=== PATIENT | female | born 1945 | race Caucasian/White ===

== ENCOUNTER 2020-10-14 07:31 | Emergency (ER) | payer MEDICARE, MEDICAID ==
[~2020-10-14] VITALS: Ht 160 cm; Wt 72.7 kg
[2020-10-14 09:59] LABS: APPEARANCE,URINE CLOUDY (CLEAR); BILIRUBIN,URINE NEGATIVE (NEGATIVE); GLUCOSE, URINE (UA) NEGATIVE (NEGATIVE); KETONES,URINE NEGATIVE (NEGATIVE); LEUKOCYTE ESTERASE ,URINE NEGATIVE (NEGATIVE); NITRATE,URINE NEGATIVE (NEGATIVE); OCCULT BLOOD,URINE TRACE (NEGATIVE); PH,URINE 5.5 (5.0-8.0); PROTEIN,URINE NEGATIVE (NEGATIVE); UROBILINOGEN,URINE 0.2 mg/dL (<=1.0)
[2020-10-14 10:18] LABS: EOSINOPHILS % (AUTO) 1.1 % (1.0-6.0); HEMATOCRIT 36.9 % (36-46); HEMOGLOBIN 12.2 g/dL (12.0-16.0); LYMPHOCYTES # (AUTO) 1.5 K/uL (1.0-4.8); LYMPHOCYTES % (AUTO) 24.5 % (22.0-44.0); MEAN CORPUSCULAR HEMOGLOBIN 30.4 pg (26.0-34.0); MEAN CORPUSCULAR VOLUME 92 fL (80-100); MONOCYTES # (AUTO) 0.4 K/uL (0.1-1.0); MONOCYTES % (AUTO) 6.9 % (2.0-9.0); NEUTROPHILS # (AUTO) 4.1 K/uL (1.8-7.7); NEUTROPHILS % (AUTO) 66.5 % (40.0-70.0); PLATELET COUNT (AUTO) 239 K/uL (150-450); RED BLOOD CELL COUNT(AUTO) 4.01 MIL/uL (4.00-5.20)
[2020-10-14 10:25] LABS: COVID AG,FIA SOURCE NASOPHARYNGEAL
[2020-10-14 10:30] LABS: ANION GAP 6 mmol/L (8-16); CALCIUM, TOTAL 8.9 mg/dL (8.8-10.5); CARBON DIOXIDE 25 mmol/L (22-29); CHLORIDE 103 mmol/L (98-107); CREATININE 0.82 mg/dL (0.60-1.30); GLUCOSE,RANDOM 103 mg/dL (70-110); POTASSIUM 3.6 mmol/L (3.5-5.1); SODIUM SERUM 134 mmol/L (136-145); UREA NITROGEN, BLOOD 27 mg/dL (7-18)
[2020-10-14 10:34] LABS: GLOMERULAR FILTR. RATE CALC > 60 mL/min (>60)
[2020-10-14 10:36] LABS: ALANINE AMINOTRANSFERASE 29 U/L (12-78); ALBUMIN 3.4 g/dL (3.4-5.0); ALKALINE PHOSPHATASE 62 U/L (46-116); ASPARTATE AMINOTRANSFERASE 18 U/L (15-37); BILIRUBIN,TOTAL 0.2 mg/dL (0.1-1.0); TOTAL PROTEIN, SERUM 6.9 g/dL (6.4-8.2)
[2020-10-14 11:47] LABS: BACTERIA,URINE None Seen /HPF (None Seen); RBC,URINE 0-2 /HPF (0-2); SQUAMOUS EPITHELIAL CELL,UR Moderate /LPF (None Seen); WBC,URINE None Seen /HPF (0-5)
[2020-10-14 11:52] VITALS: BP 108/64
== END 2020-10-14 14:41 | disposition home or self-care (01) ==
LOC: EMS 07:36
DX: R53.1 Weakness (principal); I10 Essential (primary) hypertension; F17.210 Nicotine dependence, cigarettes, uncomplicated; Z20.828 Contact with and (suspected) exposure to other viral communicable diseases; Z59.0 Homelessness
CPT/HCPCS: 36415; 71045; 80053; 81001; 84484; 85025; 87426; 93005; 99285; G0480; U0003

== ENCOUNTER 2020-11-05 20:44 | Emergency (ER) | payer MEDICAID, MEDICARE ==
[~2020-11-05] VITALS: Ht 157.5 cm; Wt 59.1 kg
[2020-11-05 23:05] VITALS: BP 142/66
== END 2020-11-05 23:39 | disposition home or self-care (01) ==
LOC: EMS 20:44
DX: I10 Essential (primary) hypertension (principal); F17.210 Nicotine dependence, cigarettes, uncomplicated; Z59.0 Homelessness
CPT/HCPCS: 99283; Z7502

== ENCOUNTER 2022-04-19 14:58 | Emergency (ER) | payer MEDICARE, OTHER ==
[~2022-04-19] VITALS: Ht 154.9 cm; Wt 54.5 kg
[2022-04-19 16:03] LABS: BASOPHILS % (AUTO) 0.8 % (0.0-2.0); EOSINOPHILS % (AUTO) 1.6 % (1.0-6.0); HEMATOCRIT 34.9 % (36-46); HEMOGLOBIN 11.6 g/dL (12.0-16.0); LYMPHOCYTES % (AUTO) 17.2 % (22.0-44.0); MEAN CORPUSCULAR HEMOGLOBIN 27.7 pg (26.0-34.0); MEAN CORPUSCULAR HGB CONC 33.3 G/dL (31.0-37.0); MEAN CORPUSCULAR VOLUME 83 fL (80-100); MONOCYTES # (AUTO) 0.5 K/uL (0.1-1.0); MONOCYTES % (AUTO) 7.7 % (2.0-9.0); NEUTROPHILS # (AUTO) 4.4 K/uL (1.8-7.7); NEUTROPHILS % (AUTO) 72.7 % (40.0-70.0); PLATELET COUNT (AUTO) 266 K/uL (150-450); RED CELL DISTRIBUTION WIDTH 14.6 % (11.5-14.5)
[2022-04-19 16:13] LABS: CALCIUM, TOTAL 9.4 mg/dL (8.8-10.5); CREATININE 1.42 mg/dL (0.60-1.30); POTASSIUM 4.2 mmol/L (3.5-5.1)
[2022-04-19 16:18] LABS: ALBUMIN 3.6 g/dL (3.4-5.0); BILIRUBIN,TOTAL 0.3 mg/dL (0.1-1.0); TOTAL PROTEIN, SERUM 6.9 g/dL (6.4-8.2)
[2022-04-19 17:30] VITALS: BP 130/72
== END 2022-04-19 17:32 | disposition home or self-care (01) ==
LOC: EMS 15:02
DX: R60.0 Localized edema (principal); I10 Essential (primary) hypertension; F17.210 Nicotine dependence, cigarettes, uncomplicated; F20.9 Schizophrenia, unspecified; Z59.00 Homelessness unspecified
CPT/HCPCS: 80053; 83880; 85025; 93970; 99284

== ENCOUNTER 2022-04-20 10:53 | Emergency (ER) | payer MEDICARE, OTHER ==
[~2022-04-20] VITALS: Ht 154.9 cm; Wt 54.5 kg
[2022-04-20 12:45] VITALS: BP 124/71
== END 2022-04-20 14:01 | disposition home or self-care (01) ==
LOC: EMS 10:53
DX: R60.0 Localized edema (principal); F32.A Depression, unspecified; I10 Essential (primary) hypertension; F20.9 Schizophrenia, unspecified; F17.210 Nicotine dependence, cigarettes, uncomplicated; Z96.649 Presence of unspecified artificial hip joint; Z59.00 Homelessness unspecified
CPT/HCPCS: 99283

== ENCOUNTER 2022-05-03 11:21 | Inpatient (IN) | payer MEDICARE, OTHER ==
[~2022-05-03] VITALS: Ht 157.5 cm; Wt 75.4 kg
[2022-05-03 15:39] LABS: BASOPHILS % (AUTO) 0.4 % (0.0-2.0); EOSINOPHILS % (AUTO) 0.3 % (1.0-6.0); HEMATOCRIT 37.1 % (36-46); HEMOGLOBIN 12.1 g/dL (12.0-16.0); LYMPHOCYTES # (AUTO) 1.1 K/uL (1.0-4.8); LYMPHOCYTES % (AUTO) 7.9 % (22.0-44.0); MEAN CORPUSCULAR HGB CONC 32.7 G/dL (31.0-37.0); MEAN CORPUSCULAR VOLUME 82 fL (80-100); MONOCYTES # (AUTO) 0.6 K/uL (0.1-1.0); MONOCYTES % (AUTO) 4.8 % (2.0-9.0); NEUTROPHILS # (AUTO) 11.6 K/uL (1.8-7.7); PLATELET COUNT (AUTO) 322 K/uL (150-450); RED BLOOD CELL COUNT(AUTO) 4.51 MIL/uL (4.00-5.20); RED CELL DISTRIBUTION WIDTH 14.4 % (11.5-14.5)
[2022-05-03 15:40] LABS: NEUTROPHILS % (AUTO) 86.6 % (40.0-70.0)
[2022-05-03 15:49] LABS: CALCIUM, TOTAL 9.4 mg/dL (8.8-10.5); CREATININE 1.59 mg/dL (0.60-1.30); POTASSIUM 3.7 mmol/L (3.5-5.1)
[2022-05-03 16:14] LABS: ALBUMIN 3.3 g/dL (3.4-5.0); BILIRUBIN,TOTAL 0.3 mg/dL (0.1-1.0); TOTAL PROTEIN, SERUM 7.8 g/dL (6.4-8.2)
[2022-05-03] MEDS ORDERED: SULFAMETHOX/TRIMETH DS 800-160 MG/TABLET PO ONE (17:00)
[2022-05-03] MEDS ORDERED: CefTRIAXone 1 GM/DEXTROSE 50 ML IV ONE ×2 (17:00→17:15)
[2022-05-03] MEDS ORDERED: 0.9% SODIUM CHLORIDE 10 ML SYRINGE IVP PRN (17:15)
[2022-05-03] MEDS ORDERED: CLINDAMYCIN 600 MG/D5% WATER 50 ML IV ONE (17:15)
[2022-05-03] MEDS ORDERED: ACETAMINOPHEN 325 MG TABLET PO PRN (17:15)
[2022-05-03] MEDS ORDERED: VANCOMYCIN HCL 1 GM/D5% WATER 200 ML IV ONE (17:15)
[2022-05-03] MEDS ORDERED: ONDANSETRON HCL 4 MG/2 ML VIAL IVP PRN ×2 (17:15→21:00)
[2022-05-03 17:32] LABS: C-REACTIVE PROTEIN QUANT 21.98 mg/dL (0.00-0.30)
[2022-05-03 17:39] LABS: COVID AG,FIA SOURCE NASAL SWAB
[2022-05-03] MEDS ORDERED: FentaNYL CITRATE PF 100 MCG/2 ML VIAL IVP ONE (19:45)
[2022-05-03] MEDS ORDERED: SODIUM CHLORIDE 0.9% 1,000 ML IV ONE (21:00)
[2022-05-03] MEDS ORDERED: MAGNESIUM HYDROXIDE SUSPENSION 30 ML UDCUP PO PRN (21:00)
[2022-05-03] MEDS ORDERED: BISACODYL 10 MG RECTAL RECTAL SUPPOSITORY PR PRN (21:00)
[2022-05-03] MEDS ORDERED: MORPHINE SULFATE 2 MG/ML SYRINGE IVP PRN (21:00)
[2022-05-03] MEDS: HYDROCODONE/ACETAMINOPHEN 5-325 MG TABLET PO PRN (22:26)
[2022-05-03] MEDS: DOCUSATE SODIUM 100 MG CAPSULE PO SCH (22:27)
[2022-05-03 23:20] VITALS: BP 98/49
[2022-05-03] MEDS: ACETAMINOPHEN 325 MG TABLET PO PRN (23:24)
[2022-05-03] MEDS: HEPARIN SODIUM,PORCINE 5,000 UNITS/ML VIAL SQ SCH ×2 (23:24→23:42)
[2022-05-03] MEDS: ZOLPIDEM TARTRATE 5 MG TABLET PO PRN (23:24)
[2022-05-04 04:45] VITALS: BP 118/61
[2022-05-04] MEDS: ACETAMINOPHEN 325 MG TABLET PO PRN ×3 (05:04→21:23)
[2022-05-04 06:05] LABS: ALBUMIN 2.4 g/dL (3.4-5.0); BILIRUBIN,TOTAL 0.3 mg/dL (0.1-1.0); CALCIUM, TOTAL 8.5 mg/dL (8.8-10.5); CREATININE 1.67 mg/dL (0.60-1.30); POTASSIUM 3.8 mmol/L (3.5-5.1); TOTAL PROTEIN, SERUM 6.5 g/dL (6.4-8.2)
[2022-05-04 07:05] VITALS: BP 91/45
[2022-05-04] MEDS ORDERED: VANCOMYCIN HCL 500 MG in DEXTROSE 5%-WATER 100 ML IV SCH (08:00)
[2022-05-04] MEDS ORDERED: VANCOMYCIN HCL 750 MG in DEXTROSE 5%-WATER 250 ML IV SCH (08:00)
[2022-05-04] MEDS: HEPARIN SODIUM,PORCINE 5,000 UNITS/ML VIAL SQ SCH ×2 (08:05→16:00)
[2022-05-04] MEDS: DOCUSATE SODIUM 100 MG CAPSULE PO SCH ×2 (08:05→20:49)
[2022-05-04] MEDS: PANTOPRAZOLE SODIUM 40 MG DR TABLET PO SCH (08:05)
[2022-05-04] MEDS ORDERED: SODIUM CHLORIDE 0.9% 1,000 ML IV ONE (11:00)
[2022-05-04] MEDS ORDERED: LEVOFLOXACIN 750 MG/D5% WATER 150 ML IV SCH (11:00)
[2022-05-04] MEDS ORDERED: *CLINICAL-LEVOFLOXACIN IVPB DOSING CLINICAL ONE (11:00)
[2022-05-04 11:15] VITALS: BP 106/57
[2022-05-04 15:19] VITALS: BP 101/42
[2022-05-04] MEDS: CLINDAMYCIN HCL 300 MG CAPSULE PO SCH ×3 (18:34→21:23)
[2022-05-04 19:11] VITALS: BP 121/53
[2022-05-04] MEDS: ZOLPIDEM TARTRATE 5 MG TABLET PO PRN (21:22)
[2022-05-04 23:48] VITALS: BP 95/48
[2022-05-05 03:59] VITALS: BP 105/55
[2022-05-05] MEDS: ACETAMINOPHEN 325 MG TABLET PO PRN ×2 (05:17→16:31)
[2022-05-05 08:35] VITALS: BP 105/66
[2022-05-05] MEDS: CLINDAMYCIN HCL 300 MG CAPSULE PO SCH ×4 (09:38→20:35)
[2022-05-05] MEDS: PANTOPRAZOLE SODIUM 40 MG DR TABLET PO SCH (09:38)
[2022-05-05] MEDS: DOCUSATE SODIUM 100 MG CAPSULE PO SCH ×2 (09:38→20:24)
[2022-05-05] MEDS: HEPARIN SODIUM,PORCINE 5,000 UNITS/ML VIAL SQ SCH ×3 (09:39→16:31)
[2022-05-05 10:32] LABS: CALCIUM, TOTAL 8.6 mg/dL (8.8-10.5); CREATININE 1.42 mg/dL (0.60-1.30); POTASSIUM 3.6 mmol/L (3.5-5.1)
[2022-05-05] MEDS ORDERED: SODIUM CHLORIDE 0.9% 500 ML IV ONE (11:30)
[2022-05-05 16:52] VITALS: BP 119/62
[2022-05-05] MEDS: QUEtiapine FUMARATE 25 MG TABLET PO SCH (20:26)
[2022-05-05 20:38] VITALS: BP 114/69
[2022-05-06 00:42] VITALS: BP 112/64
[2022-05-06 04:29] VITALS: BP 122/50
[2022-05-06] MEDS: ACETAMINOPHEN 325 MG TABLET PO PRN (05:38)
[2022-05-06 06:17] LABS: CALCIUM, TOTAL 8.7 mg/dL (8.8-10.5); CREATININE 1.5 mg/dL (0.60-1.30); POTASSIUM 4.3 mmol/L (3.5-5.1)
[2022-05-06 07:37] VITALS: BP 133/74
[2022-05-06] MEDS: CLINDAMYCIN HCL 300 MG CAPSULE PO SCH ×3 (09:00→23:46)
[2022-05-06] MEDS: DOCUSATE SODIUM 100 MG CAPSULE PO SCH ×3 (09:00→20:21)
[2022-05-06] MEDS: PANTOPRAZOLE SODIUM 40 MG DR TABLET PO SCH (09:12)
[2022-05-06] MEDS: HEPARIN SODIUM,PORCINE 5,000 UNITS/ML VIAL SQ SCH ×4 (09:12→23:47)
[2022-05-06] MEDS: QUEtiapine FUMARATE 25 MG TABLET PO SCH ×2 (09:13→20:14)
[2022-05-06 11:26] VITALS: BP 110/52
[2022-05-06] MEDS ORDERED: *CLINICAL-LEVOFLOXACIN ORAL DOSING CLINICAL ONE (11:45)
[2022-05-06] MEDS: LEVOFLOXACIN 750 MG TABLET PO SCH (12:00)
[2022-05-06 15:56] VITALS: BP 129/85
[2022-05-06 20:05] VITALS: BP 109/49
[2022-05-07 00:01] VITALS: BP 116/75
[2022-05-07 04:57] VITALS: BP 130/61
[2022-05-07 07:33] VITALS: BP 147/66
[2022-05-07] MEDS: CLINDAMYCIN HCL 300 MG CAPSULE PO SCH ×3 (08:00→23:21)
[2022-05-07] MEDS: HEPARIN SODIUM,PORCINE 5,000 UNITS/ML VIAL SQ SCH ×3 (08:00→23:22)
[2022-05-07] MEDS: QUEtiapine FUMARATE 25 MG TABLET PO SCH ×2 (09:00→20:43)
[2022-05-07] MEDS: PANTOPRAZOLE SODIUM 40 MG DR TABLET PO SCH (09:00)
[2022-05-07] MEDS: DOCUSATE SODIUM 100 MG CAPSULE PO SCH ×2 (09:00→20:41)
[2022-05-07 11:50] VITALS: BP 134/68
[2022-05-07 19:11] VITALS: BP 127/60
[2022-05-07] MEDS: HYDROCODONE/ACETAMINOPHEN 5-325 MG TABLET PO PRN (20:48)
[2022-05-08 04:35] VITALS: BP 100/54
[2022-05-08] MEDS: CLINDAMYCIN HCL 300 MG CAPSULE PO SCH ×3 (08:00→23:04)
[2022-05-08] MEDS: HEPARIN SODIUM,PORCINE 5,000 UNITS/ML VIAL SQ SCH ×3 (08:00→23:05)
[2022-05-08 08:06] VITALS: BP 124/62
[2022-05-08] MEDS: LEVOFLOXACIN 750 MG TABLET PO SCH (08:55)
[2022-05-08] MEDS: DOCUSATE SODIUM 100 MG CAPSULE PO SCH ×2 (08:55→20:31)
[2022-05-08] MEDS: PANTOPRAZOLE SODIUM 40 MG DR TABLET PO SCH (08:56)
[2022-05-08] MEDS: QUEtiapine FUMARATE 25 MG TABLET PO SCH ×2 (08:56→20:29)
[2022-05-08 15:40] VITALS: BP 126/59
[2022-05-08] MEDS: HYDROCODONE/ACETAMINOPHEN 5-325 MG TABLET PO PRN (15:42)
[2022-05-08 19:17] VITALS: BP 117/57
[2022-05-09] MEDS: HYDROCODONE/ACETAMINOPHEN 5-325 MG TABLET PO PRN (04:14)
[2022-05-09 04:18] VITALS: BP 126/60
[2022-05-09] MEDS: CLINDAMYCIN HCL 300 MG CAPSULE PO SCH ×3 (08:00→23:02)
[2022-05-09] MEDS: HEPARIN SODIUM,PORCINE 5,000 UNITS/ML VIAL SQ SCH ×3 (08:03→23:02)
[2022-05-09] MEDS: PANTOPRAZOLE SODIUM 40 MG DR TABLET PO SCH (08:04)
[2022-05-09] MEDS: DOCUSATE SODIUM 100 MG CAPSULE PO SCH ×2 (08:12→20:33)
[2022-05-09] MEDS: QUEtiapine FUMARATE 25 MG TABLET PO SCH ×2 (08:12→20:32)
[2022-05-09 08:30] VITALS: BP 126/55
[2022-05-09] MEDS ORDERED: CLIN300C58 PO (15:44)
[2022-05-09] MEDS ORDERED: LEVO750T68 PO (15:44)
[2022-05-09 15:52] VITALS: BP 147/78
[2022-05-09] MEDS: ACETAMINOPHEN 325 MG TABLET PO PRN (20:31)
[2022-05-09 21:19] VITALS: BP 139/77
[2022-05-10] MEDS: ZOLPIDEM TARTRATE 5 MG TABLET PO PRN (01:48)
[2022-05-10 06:32] VITALS: BP 151/76
== END 2022-05-10 06:30 | disposition home health service (06) | DRG 603 ==
LOC: EMS 11:21 → 5S 20:04 → 6N 05-07 17:50
PROVIDERS: ADMIT Internal Medicine; ATTEND Internal Medicine
DX: L03.115 Cellulitis of right lower limb (principal); N17.9 Acute kidney failure, unspecified; E87.1 Hypo-osmolality and hyponatremia; L03.116 Cellulitis of left lower limb; Z20.822 Contact with and (suspected) exposure to COVID-19; F20.9 Schizophrenia, unspecified; I10 Essential (primary) hypertension; Z53.29 Procedure and treatment not carried out because of patient's decision for other reasons; Z96.649 Presence of unspecified artificial hip joint; F32.A Depression, unspecified; Z59.00 Homelessness unspecified; Z87.891 Personal history of nicotine dependence; Z79.899 Other long term (current) drug therapy; Z91.19 Patient's noncompliance with other medical treatment and regimen
CPT/HCPCS: 71045; 73700; 80048; 80053; 82550; 83880; 84484; 85025; 85610; 85730; 86140; 87040; 93005; 97116; 97162; 97530; 99285; J0696; J1644; J1956; J2270; J2405; J3010; J3370; J3490; J7030; J7060; Q9967; 36415-L1; 36415-TC

== ENCOUNTER 2022-05-12 15:12 | Inpatient (IN) | payer MEDICARE, OTHER ==
[~2022-05-12] VITALS: Ht 154.9 cm; Wt 76.6 kg
[~2022-05-12 15:12] MED LIST: CLIN300C58 PO; LEVO750T68 PO
[2022-05-12] MEDS ORDERED: GABAPENTIN 300 MG CAPSULE PO ONE (16:15)
[2022-05-12] MEDS ORDERED: KETOROLAC TROMETHAMINE 10 MG TABLET PO ONE (16:15)
[2022-05-12] MEDS ORDERED: CefTRIAXone 1 GM/DEXTROSE 50 ML IV ONE (16:30)
[2022-05-12 16:45] LABS: BASOPHILS % (AUTO) 0.7 % (0.0-2.0); EOSINOPHILS % (AUTO) 1.8 % (1.0-6.0); HEMOGLOBIN 11.2 g/dL (12.0-16.0); LYMPHOCYTES # (AUTO) 1.5 K/uL (1.0-4.8); LYMPHOCYTES % (AUTO) 13.6 % (22.0-44.0); MEAN CORPUSCULAR HEMOGLOBIN 27.4 pg (26.0-34.0); MEAN CORPUSCULAR HGB CONC 32.9 G/dL (31.0-37.0); MEAN CORPUSCULAR VOLUME 83 fL (80-100); MONOCYTES # (AUTO) 0.8 K/uL (0.1-1.0); MONOCYTES % (AUTO) 7.1 % (2.0-9.0); NEUTROPHILS # (AUTO) 8.5 K/uL (1.8-7.7); NEUTROPHILS % (AUTO) 76.8 % (40.0-70.0); PLATELET COUNT (AUTO) 334 K/uL (150-450); RED BLOOD CELL COUNT(AUTO) 4.08 MIL/uL (4.00-5.20); RED CELL DISTRIBUTION WIDTH 14.8 % (11.5-14.5)
[2022-05-12 16:58] LABS: ANION GAP 9 mmol/L (8-16); CALCIUM, TOTAL 9.2 mg/dL (8.8-10.5); CARBON DIOXIDE 26 mmol/L (22-29); CHLORIDE 99 mmol/L (98-107); CREATININE 1.39 mg/dL (0.60-1.30); GLUCOSE,RANDOM 120 mg/dL (70-110); POTASSIUM 4.8 mmol/L (3.5-5.1); SODIUM SERUM 134 mmol/L (136-145); UREA NITROGEN, BLOOD 19 mg/dL (7-18)
[2022-05-12 16:59] LABS: GLOMERULAR FILTR. RATE CALC 37 mL/min (>60)
[2022-05-12 17:10] LABS: LACTIC ACID 3.1 mmol/L (0.4-2.0)
[2022-05-12 17:11] LABS: ALANINE AMINOTRANSFERASE 23 U/L (12-78); ALBUMIN 2.9 g/dL (3.4-5.0); ALKALINE PHOSPHATASE 99 U/L (46-116); ASPARTATE AMINOTRANSFERASE 16 U/L (15-37); BILIRUBIN,TOTAL 0.2 mg/dL (0.1-1.0); TOTAL PROTEIN, SERUM 7.1 g/dL (6.4-8.2)
[2022-05-12] MEDS ORDERED: MetroNIDAZOLE 250 MG TABLET PO ONE (17:30)
[2022-05-12] MEDS ORDERED: VANCOMYCIN 1GM/WATER(PEG/NADA) 200 ML IV ONE (17:30)
[2022-05-12] MEDS ORDERED: SODIUM CHLORIDE 0.9% 1,000 ML IV ONE (17:30)
[2022-05-12] MEDS ORDERED: ACETAMINOPHEN 325 MG TABLET PO PRN (18:30)
[2022-05-12] MEDS ORDERED: ONDANSETRON HCL 4 MG/2 ML VIAL IVP PRN ×2 (18:30→19:00)
[2022-05-12 18:45] LABS: COVID AG,FIA SOURCE NASAL SWAB
[2022-05-12] MEDS ORDERED: MORPHINE SULFATE 10 MG/ML VIAL IVP PRN (19:00)
[2022-05-12] MEDS: RINGERS SOLUTION,LACTATED 1,000 ML IV SCH (20:07)
[2022-05-12] MEDS ORDERED: RINGERS SOLUTION,LACTATED 500 ML IV ONE (21:15)
[2022-05-12] MEDS ORDERED: SODIUM CHLORIDE 0.9% 250 ML IV ONE (21:37)
[2022-05-12 21:50] VITALS: BP 112/63
[2022-05-12] MEDS: PIPERACILLIN SODIUM/TAZOBACTAM 2.25 GM in DEXTROSE 5%-WATER 50 ML IV SCH (21:53)
[2022-05-12 22:04] LABS: C-REACTIVE PROTEIN QUANT 2.36 mg/dL (0.00-0.30)
[2022-05-12] MEDS ORDERED: MORPHINE SULFATE 2 MG/ML SYRINGE IVP PRN (22:07)
[2022-05-12 22:35] LABS: ERYTHROCYTE SEDIMENTATION RATE 55 MM/HR (0-20)
[2022-05-12] MEDS: HEPARIN SODIUM,PORCINE 5,000 UNITS/ML VIAL SQ SCH (23:07)
[2022-05-13] MEDS: PIPERACILLIN SODIUM/TAZOBACTAM 2.25 GM in DEXTROSE 5%-WATER 50 ML IV SCH ×4 (02:54→22:10)
[2022-05-13 04:44] VITALS: BP 109/61
[2022-05-13 06:22] LABS: BASOPHILS % (AUTO) 0.8 % (0.0-2.0); EOSINOPHILS % (AUTO) 2.7 % (1.0-6.0); HEMATOCRIT 30.1 % (36-46); LYMPHOCYTES # (AUTO) 1.5 K/uL (1.0-4.8); LYMPHOCYTES % (AUTO) 22.9 % (22.0-44.0); MEAN CORPUSCULAR HEMOGLOBIN 27.6 pg (26.0-34.0); MEAN CORPUSCULAR HGB CONC 33.2 G/dL (31.0-37.0); MEAN CORPUSCULAR VOLUME 83 fL (80-100); MONOCYTES # (AUTO) 0.5 K/uL (0.1-1.0); MONOCYTES % (AUTO) 8.1 % (2.0-9.0); NEUTROPHILS # (AUTO) 4.4 K/uL (1.8-7.7); NEUTROPHILS % (AUTO) 65.5 % (40.0-70.0); PLATELET COUNT (AUTO) 275 K/uL (150-450); RED BLOOD CELL COUNT(AUTO) 3.63 MIL/uL (4.00-5.20); RED CELL DISTRIBUTION WIDTH 14.4 % (11.5-14.5)
[2022-05-13 06:38] LABS: CALCIUM, TOTAL 8.2 mg/dL (8.8-10.5); CREATININE 1.44 mg/dL (0.60-1.30); MAGNESIUM 2.2 mg/dL (1.80-2.40); POTASSIUM 5.1 mmol/L (3.5-5.1)
[2022-05-13 08:13] VITALS: BP 109/67
[2022-05-13 08:18] VITALS: BP 120/67
[2022-05-13] MEDS: VANCOMYCIN HCL 750 MG in DEXTROSE 5%-WATER 250 ML IV SCH (08:41)
[2022-05-13] MEDS: HEPARIN SODIUM,PORCINE 5,000 UNITS/ML VIAL SQ SCH ×3 (08:42→23:59)
[2022-05-13] MEDS: ASPIRIN 81 MG CHEWABLE TABLET PO SCH (08:42)
[2022-05-13] MEDS: RINGERS SOLUTION,LACTATED 1,000 ML IV SCH (11:44)
[2022-05-13 16:45] VITALS: BP 118/59
[2022-05-13] MEDS: ACETAMINOPHEN 325 MG TABLET PO PRN (17:42)
[2022-05-13 20:14] VITALS: BP 99/50
[2022-05-14] MEDS: PIPERACILLIN SODIUM/TAZOBACTAM 2.25 GM in DEXTROSE 5%-WATER 50 ML IV SCH ×4 (03:29→21:41)
[2022-05-14 04:05] VITALS: BP 119/56
[2022-05-14] MEDS: RINGERS SOLUTION,LACTATED 1,000 ML IV SCH (04:08)
[2022-05-14 06:51] LABS: CALCIUM, TOTAL 8.5 mg/dL (8.8-10.5); CREATININE 1.48 mg/dL (0.60-1.30); POTASSIUM 5.5 mmol/L (3.5-5.1); VANCOMYCIN,RANDOM 13.8 mcg/mL (25.0-50.0)
[2022-05-14 08:05] VITALS: BP 118/62
[2022-05-14] MEDS: ASPIRIN 81 MG CHEWABLE TABLET PO SCH (08:12)
[2022-05-14] MEDS: HEPARIN SODIUM,PORCINE 5,000 UNITS/ML VIAL SQ SCH ×3 (08:12→23:11)
[2022-05-14] MEDS: VANCOMYCIN HCL 750 MG in DEXTROSE 5%-WATER 250 ML IV SCH (08:15)
[2022-05-14 20:37] VITALS: BP 116/56
[2022-05-14] MEDS: ACETAMINOPHEN 325 MG TABLET PO PRN (23:20)
[2022-05-15] MEDS: RINGERS SOLUTION,LACTATED 1,000 ML IV SCH (02:30)
[2022-05-15] MEDS: PIPERACILLIN SODIUM/TAZOBACTAM 2.25 GM in DEXTROSE 5%-WATER 50 ML IV SCH ×4 (03:36→22:20)
[2022-05-15 04:00] VITALS: BP 141/71
[2022-05-15] MEDS ORDERED: SODIUM CHLORIDE 0.9% 500 ML IV ONE (04:12)
[2022-05-15 07:14] LABS: CALCIUM, TOTAL 8.6 mg/dL (8.8-10.5); CREATININE 1.44 mg/dL (0.60-1.30); POTASSIUM 5.7 mmol/L (3.5-5.1); VANCOMYCIN,RANDOM 14.6 mcg/mL (25.0-50.0)
[2022-05-15] MEDS ORDERED: GLUCAGON,HUMAN RECOMBINANT 1 MG VIAL IM PRN (07:30)
[2022-05-15 07:42] VITALS: BP 129/60
[2022-05-15] MEDS ORDERED: DEXTROSE 50%-WATER 25 GM/50 ML SYG IVP PRN (07:45)
[2022-05-15] MEDS: VANCOMYCIN HCL 750 MG in DEXTROSE 5%-WATER 250 ML IV SCH (08:38)
[2022-05-15] MEDS: ASPIRIN 81 MG CHEWABLE TABLET PO SCH (08:38)
[2022-05-15] MEDS: HEPARIN SODIUM,PORCINE 5,000 UNITS/ML VIAL SQ SCH ×2 (08:38→15:22)
[2022-05-15 09:46] LABS: GLUCOMETER DEV NAME(LOC) 6N.1; GLUCOSE,POINT OF CARE 98 MG/DL (70-110)
[2022-05-15] MEDS: INSULIN LISPRO 100 UNITS/ML SQ PRN ×3 (10:15→17:22)
[2022-05-15 14:56] LABS: GLUCOMETER DEV NAME(LOC) 6N.2; GLUCOSE,POINT OF CARE 92 MG/DL (70-110)
[2022-05-15] MEDS: SODIUM POLYSTYRENE SULFONATE 15 GM/60 ML SUSPENSION BOTTLE PO SCH (15:12)
[2022-05-15 15:18] VITALS: BP 128/58
[2022-05-15 18:31] LABS: GLUCOMETER DEV NAME(LOC) 6N.1; GLUCOSE,POINT OF CARE 99 MG/DL (70-110)
[2022-05-15 20:13] VITALS: BP 134/72
[2022-05-16 00:01] LABS: GLUCOMETER DEV NAME(LOC) 6N.1; GLUCOSE,POINT OF CARE 130 MG/DL (70-110)
[2022-05-16] MEDS: HEPARIN SODIUM,PORCINE 5,000 UNITS/ML VIAL SQ SCH ×4 (00:12→23:36)
[2022-05-16] MEDS: RINGERS SOLUTION,LACTATED 1,000 ML IV SCH (03:09)
[2022-05-16] MEDS: PIPERACILLIN SODIUM/TAZOBACTAM 2.25 GM in DEXTROSE 5%-WATER 50 ML IV SCH ×4 (03:55→22:04)
[2022-05-16 05:48] VITALS: BP 128/63
[2022-05-16 05:54] LABS: CALCIUM, TOTAL 8.6 mg/dL (8.8-10.5); CREATININE 1.54 mg/dL (0.60-1.30); POTASSIUM 5.1 mmol/L (3.5-5.1)
[2022-05-16 07:06] LABS: GLUCOMETER DEV NAME(LOC) 6N.2; GLUCOSE,POINT OF CARE 102 MG/DL (70-110)
[2022-05-16 08:03] VITALS: BP 124/63
[2022-05-16] MEDS: VANCOMYCIN HCL 750 MG in DEXTROSE 5%-WATER 250 ML IV SCH (08:30)
[2022-05-16] MEDS: ASPIRIN 81 MG CHEWABLE TABLET PO SCH (08:30)
[2022-05-16] MEDS: SODIUM POLYSTYRENE SULFONATE 15 GM/60 ML SUSPENSION BOTTLE PO SCH (10:28)
[2022-05-16] MEDS: INSULIN LISPRO 100 UNITS/ML SQ PRN ×2 (11:34→18:37)
[2022-05-16 12:06] LABS: GLUCOMETER DEV NAME(LOC) 6N.1; GLUCOSE,POINT OF CARE 110 MG/DL (70-110)
[2022-05-16 16:01] VITALS: BP 120/58
[2022-05-16 20:00] VITALS: BP 124/55
[2022-05-16 20:01] LABS: GLUCOMETER DEV NAME(LOC) 6N.1; GLUCOSE,POINT OF CARE 106 MG/DL (70-110)
[2022-05-16 21:11] LABS: GLUCOMETER DEV NAME(LOC) 6N.2; GLUCOSE,POINT OF CARE 119 MG/DL (70-110)
[2022-05-17] MEDS: RINGERS SOLUTION,LACTATED 1,000 ML IV SCH ×2 (01:35→08:58)
[2022-05-17] MEDS: PIPERACILLIN SODIUM/TAZOBACTAM 2.25 GM in DEXTROSE 5%-WATER 50 ML IV SCH ×4 (03:47→21:41)
[2022-05-17 05:00] VITALS: BP 132/53
[2022-05-17 06:47] LABS: GLUCOMETER DEV NAME(LOC) 6N.1; GLUCOSE,POINT OF CARE 90 MG/DL (70-110)
[2022-05-17 07:27] LABS: CREATININE 1.59 mg/dL (0.60-1.30); POTASSIUM 4.9 mmol/L (3.5-5.1)
[2022-05-17 08:21] VITALS: BP 150/76
[2022-05-17] MEDS: HEPARIN SODIUM,PORCINE 5,000 UNITS/ML VIAL SQ SCH ×3 (08:51→23:47)
[2022-05-17] MEDS: VANCOMYCIN HCL 750 MG in DEXTROSE 5%-WATER 250 ML IV SCH (08:51)
[2022-05-17] MEDS: SODIUM POLYSTYRENE SULFONATE 15 GM/60 ML SUSPENSION BOTTLE PO SCH (08:52)
[2022-05-17] MEDS: ASPIRIN 81 MG CHEWABLE TABLET PO SCH (08:52)
[2022-05-17 10:57] LABS: BASOPHILS % (AUTO) 2.8 % (0.0-2.0); EOSINOPHILS % (AUTO) 4.1 % (1.0-6.0); HEMATOCRIT 32.8 % (36-46); HEMOGLOBIN 10.6 g/dL (12.0-16.0); LYMPHOCYTES # (AUTO) 1.8 K/uL (1.0-4.8); LYMPHOCYTES % (AUTO) 27.5 % (22.0-44.0); MEAN CORPUSCULAR HEMOGLOBIN 27.4 pg (26.0-34.0); MEAN CORPUSCULAR HGB CONC 32.4 G/dL (31.0-37.0); MEAN CORPUSCULAR VOLUME 85 fL (80-100); MONOCYTES # (AUTO) 0.5 K/uL (0.1-1.0); NEUTROPHILS # (AUTO) 3.8 K/uL (1.8-7.7); NEUTROPHILS % (AUTO) 58.6 % (40.0-70.0); PLATELET COUNT (AUTO) 354 K/uL (150-450); RED BLOOD CELL COUNT(AUTO) 3.87 MIL/uL (4.00-5.20); RED CELL DISTRIBUTION WIDTH 15.2 % (11.5-14.5)
[2022-05-17] MEDS: ACETAMINOPHEN 325 MG TABLET PO PRN ×2 (11:04→15:33)
[2022-05-17 12:11] LABS: GLUCOMETER DEV NAME(LOC) 6N.2; GLUCOSE,POINT OF CARE 115 MG/DL (70-110)
[2022-05-17 16:09] VITALS: BP 126/54
[2022-05-17] MEDS ORDERED: SODIUM CHLORIDE 0.9% 250 ML IV ONE (21:43)
[2022-05-18] MEDS: PIPERACILLIN SODIUM/TAZOBACTAM 2.25 GM in DEXTROSE 5%-WATER 50 ML IV SCH ×4 (04:09→23:09)
[2022-05-18] MEDS: RINGERS SOLUTION,LACTATED 1,000 ML IV SCH ×2 (04:24→08:17)
[2022-05-18 04:59] VITALS: BP 155/68
[2022-05-18 06:24] LABS: ALBUMIN 2.5 g/dL (3.4-5.0); BILIRUBIN,TOTAL 0.2 mg/dL (0.1-1.0); CALCIUM, TOTAL 8.7 mg/dL (8.8-10.5); CREATININE 1.42 mg/dL (0.60-1.30); POTASSIUM 4.8 mmol/L (3.5-5.1); TOTAL PROTEIN, SERUM 6.3 g/dL (6.4-8.2); VANCOMYCIN,RANDOM 16.1 mcg/mL (25.0-50.0)
[2022-05-18 07:21] VITALS: BP 152/66
[2022-05-18] MEDS: VANCOMYCIN HCL 750 MG in DEXTROSE 5%-WATER 250 ML IV SCH (08:17)
[2022-05-18] MEDS: ASPIRIN 81 MG CHEWABLE TABLET PO SCH (08:17)
[2022-05-18] MEDS: ACETAMINOPHEN 325 MG TABLET PO PRN ×3 (08:17→21:52)
[2022-05-18] MEDS: HEPARIN SODIUM,PORCINE 5,000 UNITS/ML VIAL SQ SCH ×2 (08:17→16:50)
[2022-05-18 12:02] LABS: GLUCOMETER DEV NAME(LOC) 6N.1; GLUCOSE,POINT OF CARE 92 MG/DL (70-110)
[2022-05-18 16:01] VITALS: BP 148/68
[2022-05-18 16:03] VITALS: BP 146/70
[2022-05-18 19:20] VITALS: BP 114/54
[2022-05-18 23:36] LABS: GLUCOMETER DEV NAME(LOC) 6N.2; GLUCOSE,POINT OF CARE 106 MG/DL (70-110)
[2022-05-18 23:36] LABS: GLUCOMETER DEV NAME(LOC) 6N.2; GLUCOSE,POINT OF CARE 125 MG/DL (70-110)
[2022-05-19] MEDS: HEPARIN SODIUM,PORCINE 5,000 UNITS/ML VIAL SQ SCH ×3 (00:48→15:27)
[2022-05-19] MEDS: PIPERACILLIN SODIUM/TAZOBACTAM 2.25 GM in DEXTROSE 5%-WATER 50 ML IV SCH (04:01)
[2022-05-19 04:10] VITALS: BP 113/70
[2022-05-19] MEDS: ACETAMINOPHEN 325 MG TABLET PO PRN ×4 (04:22→20:35)
[2022-05-19] MEDS: RINGERS SOLUTION,LACTATED 1,000 ML IV SCH ×2 (04:44→11:11)
[2022-05-19 06:19] LABS: ALBUMIN 2.5 g/dL (3.4-5.0); BILIRUBIN,TOTAL 0.2 mg/dL (0.1-1.0); CALCIUM, TOTAL 8.9 mg/dL (8.8-10.5); CREATININE 1.43 mg/dL (0.60-1.30); POTASSIUM 4.7 mmol/L (3.5-5.1); TOTAL PROTEIN, SERUM 6.3 g/dL (6.4-8.2)
[2022-05-19 06:47] LABS: GLUCOMETER DEV NAME(LOC) 6N.1; GLUCOSE,POINT OF CARE 95 MG/DL (70-110)
[2022-05-19 07:32] VITALS: BP 116/72
[2022-05-19] MEDS ORDERED: SODIUM CHLORIDE 0.9% 500 ML IV ONE (07:52)
[2022-05-19] MEDS: ASPIRIN 81 MG CHEWABLE TABLET PO SCH (08:07)
[2022-05-19] MEDS: VANCOMYCIN HCL 750 MG in DEXTROSE 5%-WATER 250 ML IV SCH (08:07)
[2022-05-19 11:57] LABS: GLUCOMETER DEV NAME(LOC) 6N.2; GLUCOSE,POINT OF CARE 112 MG/DL (70-110)
[2022-05-19 16:04] VITALS: BP 127/61
[2022-05-19 19:44] VITALS: BP 117/57
[2022-05-19 22:46] LABS: GLUCOMETER DEV NAME(LOC) 6N.1; GLUCOSE,POINT OF CARE 103 MG/DL (70-110)
[2022-05-20] MEDS: HEPARIN SODIUM,PORCINE 5,000 UNITS/ML VIAL SQ SCH ×3 (00:41→16:12)
[2022-05-20 04:44] VITALS: BP 129/61
[2022-05-20 06:27] LABS: GLUCOMETER DEV NAME(LOC) 6N.2; GLUCOSE,POINT OF CARE 98 MG/DL (70-110)
[2022-05-20 06:28] LABS: GLUCOMETER DEV NAME(LOC) 6N.1; GLUCOSE,POINT OF CARE 87 MG/DL (70-110)
[2022-05-20 06:52] LABS: ALBUMIN 2.6 g/dL (3.4-5.0); BILIRUBIN,TOTAL 0.1 mg/dL (0.1-1.0); CALCIUM, TOTAL 8.9 mg/dL (8.8-10.5); CREATININE 1.46 mg/dL (0.60-1.30); POTASSIUM 5.2 mmol/L (3.5-5.1); TOTAL PROTEIN, SERUM 6.4 g/dL (6.4-8.2)
[2022-05-20 08:38] VITALS: BP 127/69
[2022-05-20] MEDS: ASPIRIN 81 MG CHEWABLE TABLET PO SCH (09:40)
[2022-05-20] MEDS ORDERED: DEXTROSE 5%-WATER 1,000 ML IV SCH (13:00)
[2022-05-20 13:31] LABS: GLUCOMETER DEV NAME(LOC) 6N.2; GLUCOSE,POINT OF CARE 113 MG/DL (70-110)
[2022-05-20 15:54] VITALS: BP 130/63
[2022-05-20 17:31] LABS: GLUCOMETER DEV NAME(LOC) 6N.1; GLUCOSE,POINT OF CARE 103 MG/DL (70-110)
[2022-05-20 19:55] VITALS: BP 115/52
[2022-05-20] MEDS: ACETAMINOPHEN 325 MG TABLET PO PRN (22:00)
[2022-05-21] MEDS: HEPARIN SODIUM,PORCINE 5,000 UNITS/ML VIAL SQ SCH ×3 (00:17→15:52)
[2022-05-21 04:07] VITALS: BP 118/70
[2022-05-21 06:29] LABS: ALBUMIN 2.8 g/dL (3.4-5.0); BILIRUBIN,TOTAL 0.2 mg/dL (0.1-1.0); CALCIUM, TOTAL 9.3 mg/dL (8.8-10.5); CREATININE 1.23 mg/dL (0.60-1.30); POTASSIUM 5.2 mmol/L (3.5-5.1); TOTAL PROTEIN, SERUM 6.8 g/dL (6.4-8.2)
[2022-05-21 07:50] VITALS: BP 127/79
[2022-05-21] MEDS: ASPIRIN 81 MG CHEWABLE TABLET PO SCH (08:32)
[2022-05-21 13:01] LABS: GLUCOMETER DEV NAME(LOC) 6N.1; GLUCOSE,POINT OF CARE 88 MG/DL (70-110)
[2022-05-21 13:01] LABS: GLUCOMETER DEV NAME(LOC) 6N.1; GLUCOSE,POINT OF CARE 90 MG/DL (70-110)
[2022-05-21] MEDS ORDERED: ASPI-1450 PO (14:54)
[2022-05-21] MEDS ORDERED: ACET650S24 PR (14:55)
[2022-05-21 16:15] VITALS: BP 142/73
[2022-05-21 20:11] LABS: GLUCOMETER DEV NAME(LOC) 6N.2; GLUCOSE,POINT OF CARE 94 MG/DL (70-110)
== END 2022-05-21 18:25 | disposition home or self-care (01) | DRG 603 ==
LOC: EMS 15:15 → 6S 18:52
PROVIDERS: ADMIT Internal Medicine; ATTEND Internal Medicine
DX: L03.116 Cellulitis of left lower limb (principal); R65.10 Systemic inflammatory response syndrome (SIRS) of non-infectious origin without acute organ dysfunction; E44.0 Moderate protein-calorie malnutrition; E87.2 Acidosis; E87.1 Hypo-osmolality and hyponatremia; N17.9 Acute kidney failure, unspecified; Z20.822 Contact with and (suspected) exposure to COVID-19; F20.9 Schizophrenia, unspecified; I10 Essential (primary) hypertension; Z96.649 Presence of unspecified artificial hip joint; F32.A Depression, unspecified; F17.210 Nicotine dependence, cigarettes, uncomplicated; I70.0 Atherosclerosis of aorta; R79.89 Other specified abnormal findings of blood chemistry; L03.115 Cellulitis of right lower limb; F99 Mental disorder, not otherwise specified; R73.03 Prediabetes; E87.5 Hyperkalemia; Z91.19 Patient's noncompliance with other medical treatment and regimen; Z59.00 Homelessness unspecified; Z68.31 Body mass index [BMI] 31.0-31.9, adult
CPT/HCPCS: 71045; 80048; 80053; 80202; 82550; 82962; 83036; 83605; 83735; 83880; 84132; 84145; 85025; 85651; 86140; 87040; 93925; 97116; 97162; 97530; 99285; J1644; J2270; J2543; J3370; J7030; J7040; J7050; J7060; J7120; Q9967; 36415-L1; 36415-TC

== ENCOUNTER 2022-09-21 16:47 | Emergency (ER) | payer MEDICARE, OTHER ==
[~2022-09-21] VITALS: Ht 157.5 cm; Wt 80.0 kg
[~2022-09-21 16:47] MED LIST changes: +ACET650S24 PR; +ASPI-1450 PO; -CLIN300C58 PO; -LEVO750T68 PO
[2022-09-21] MEDS ORDERED: IBUPROFEN 600 MG TABLET PO ONE (21:15)
[2022-09-21 22:00] VITALS: BP 118/69
== END 2022-09-21 21:39 | disposition home or self-care (01) ==
LOC: EMS 17:29
DX: M25.511 Pain in right shoulder (principal); I10 Essential (primary) hypertension; F32.9 Major depressive disorder, single episode, unspecified; F20.9 Schizophrenia, unspecified; F17.210 Nicotine dependence, cigarettes, uncomplicated
CPT/HCPCS: 71045; 99284; 36415-L1; 36415-TC

== ENCOUNTER 2022-10-02 17:52 | Emergency (ER) | payer MEDICARE, OTHER ==
[~2022-10-02] VITALS: Ht 160 cm; Wt 70.0 kg
[2022-10-02] MEDS ORDERED: ACETAMINOPHEN 500 MG TABLET PO ONE (18:15)
[2022-10-02 19:50] VITALS: BP 135/75
== END 2022-10-02 19:50 | disposition home or self-care (01) ==
LOC: EMS 17:54
DX: S43.101A Unspecified dislocation of right acromioclavicular joint, initial encounter (principal); S16.1XXA Strain of muscle, fascia and tendon at neck level, initial encounter; S09.90XA Unspecified injury of head, initial encounter; F32.A Depression, unspecified; I10 Essential (primary) hypertension; F20.9 Schizophrenia, unspecified; F17.210 Nicotine dependence, cigarettes, uncomplicated; Z96.649 Presence of unspecified artificial hip joint; W19.XXXA Unspecified fall, initial encounter; Y93.89 Activity, other specified; Y92.89 Other specified places as the place of occurrence of the external cause; Y99.8 Other external cause status
CPT/HCPCS: 70450; 72125; 99284

== ENCOUNTER 2022-10-07 14:18 | Emergency (ER) | payer MEDICARE, OTHER ==
[~2022-10-07] VITALS: Ht 160 cm; Wt 75.7 kg
[2022-10-07 22:02] VITALS: BP 135/77
== END 2022-10-07 22:10 | disposition home or self-care (01) ==
LOC: EMS 14:24
DX: S43.101A Unspecified dislocation of right acromioclavicular joint, initial encounter (principal); M25.551 Pain in right hip; J44.9 Chronic obstructive pulmonary disease, unspecified; F32.A Depression, unspecified; I10 Essential (primary) hypertension; F20.9 Schizophrenia, unspecified; F17.210 Nicotine dependence, cigarettes, uncomplicated; Z96.649 Presence of unspecified artificial hip joint; W19.XXXA Unspecified fall, initial encounter; Y93.89 Activity, other specified; Y92.89 Other specified places as the place of occurrence of the external cause; Y99.8 Other external cause status
CPT/HCPCS: 73502; 99284